=== PATIENT | male | born 1990 | race Caucasian/White ===

== ENCOUNTER 2022-01-28 09:54 | Observation (INO) ==
[2022-01-28] MEDS ORDERED: 0.9 % Sodium Chloride 1,000 ML IVC ONE ×2 (10:31→12:41)
[2022-01-28] MEDS ORDERED: Ondansetron 4 MG/2 ML VIAL IVP ONE (10:31)
[2022-01-28] MEDS ORDERED: Iopamidol - 370 500 ML MLS IVP ONE ×2 (10:33→10:34)
[2022-01-28 11:43] LABS: Bilirubin,Urine Negative (Negative); Blood,Urine Negative (Negative); Clarity,Urine Clear (Clear); Color,Urine Light-Yellow (Yellow); Glucose,Urine (UA) Normal (Normal); Ketones,Urine Negative (Negative); Leukocyte Esterase,Urine Negative (Negative); Nitrite,Urine Negative (Negative); PH,Urine 6.5 pH Units (5.0-8.0); Protein,Urine Negative (Neg-Trace); Specific Gravity,Urine 1.013 (1.010-1.025); Urobilinogen,Urine Normal (Normal)
[2022-01-28 11:47] LABS: Basophils % 0.3 %; Eosinophils # 0.3 K/mcL (0.0-0.6); Hematocrit 42.6 % (37.5-50.1); Hemoglobin 15.1 g/dL (12.9-16.9); Immature Granulocytes % 0.2 % (0-4); Lymphocytes # 2.7 K/mcL (0.6-4.6); Lymphocytes % 40.3 %; Mean Corpuscular HGB Conc 35.4 g/dL (31.6-35.5); Mean Corpuscular Hemoglobin 31.1 pg (28.0-33.3); Mean Corpuscular Volume 87.8 fL (83.0-100.0); Mean Platelet Volume 9.4 fL (9.4-12.4); Monocytes # 0.7 K/mcL (0.0-1.3); Neutrophils # 2.9 K/mcL (1.6-8.9); Platelet Count 201 K/mcL (140-400); Red Blood Count 4.85 M/mcL (4.19-5.50); Red Cell Distribution Width 11.9 % (11.5-14.5); Segmented Neutrophils % 44.2 %; White Blood Count 6.6 K/mcL (4.3-11.1)
[2022-01-28 11:56] LABS: Prothrombin Time 11.2 Seconds (9.4-12.1)
[2022-01-28 11:59] LABS: Activated Partial Thrombo Time 28.6 Seconds (26.0-36.0)
[2022-01-28 12:10] LABS: Influenza A PCR Negative (Negative); Influenza B PCR Negative (Negative); Resp. Syncytial Virus PCR Negative (Negative)
[2022-01-28 12:12] LABS: BUN/Creatinine Ratio 14 (6-26); Blood Urea Nitrogen 13 mg/dL (6-20); Calcium 9.2 mg/dL (8.6-10.3); Carbon Dioxide 26 mEq/L (23-29); Chloride 105 mEq/L (98-107); Glucose 90 mg/dL (70-105); Osmolality,Calculated 284 (280-300); Potassium 4.4 mEq/L (3.5-5.1); Sodium 137 mEq/L (136-145); Troponin I < 0.03 ng/mL (< 0.04)
[2022-01-28 12:18] LABS: SARS-CoV-2 by PCR (In House) Positive (Negative)
[2022-01-28] MEDS ORDERED: Prochlorperazine 10 MG/2 ML VIAL IVP STA (12:41)
[2022-01-28] MEDS ORDERED: *HR* Rivaroxaban 15 MG TABLET PO STA (13:25)
[2022-01-28] MEDS ORDERED: Ketorolac 30 MG/ML VIAL IVP STA (13:26)
[2022-01-28] MEDS ORDERED: *HR* Heparin 5,000 UNIT/ML VIAL IVP ONE (13:51)
[2022-01-28] MEDS ORDERED: *HR* Heparin 5,000 UNIT/ML VIAL IVP PRN ×2 (13:51)
[2022-01-28] MEDS ORDERED: Heparin 25,000UNIT/250ML 1/2NS 25,000 UNIT/250 ML IV.SOLN IVC SCH (14:00)
[2022-01-28 14:30] LABS: Heparin anti-factor XA UFH < 0.04 IU/mL (0.30-0.70)
[2022-01-28] MEDS ORDERED: Gadolinium Contrast Agent (WT Based) IV PRN (14:30)
[2022-01-28 14:31] LABS: Prothrombin Time 11.2 Seconds (9.4-12.1)
[2022-01-28 15:08] LABS: C-Reactive Protein < 5 mg/L (Less than 10)
[2022-01-28] MEDS ORDERED: GADOBUTROL 30 MMOL/30 ML VIAL IVP ONE (15:26)
[2022-01-28] MEDS ORDERED: Acetaminophen 325 MG TABLET PO PRN (15:38)
[2022-01-28] MEDS ORDERED: Melatonin 3 MG TABLET PO PRN (22:42)
[2022-01-29 03:30] LABS: Alanine Aminotransferase 19 Units/L (7-52); Albumin 3.7 g/dL (3.5-5.7); Albumin/Globulin Ratio 1.7 (1.1-2.2); Alkaline Phosphatase 53 Units/L (34-104); Aspartate Amino Transferase 17 Units/L (13-39); BUN/Creatinine Ratio 13 (6-26); Bilirubin,Total 0.4 mg/dL (0.3-1.0); Blood Urea Nitrogen 12 mg/dL (6-20); Calcium 8.3 mg/dL (8.6-10.3); Carbon Dioxide 22 mEq/L (23-29); Chloride 108 mEq/L (98-107); Chol/HDL Ratio 3.7 (0-4.9); Cholesterol 118 mg/dL (< 200); Globulin 2.2 g/dL (2.4-3.5); Glucose 99 mg/dL (70-105); HDL Cholesterol 32 mg/dL (40-59); LDL Cholesterol,Calculated 56 mg/dL (< 100); Osmolality,Calculated 284 (280-300); Potassium 4.1 mEq/L (3.5-5.1); Sodium 137 mEq/L (136-145); Total Protein 5.9 g/dL (6.4-8.9); Triglycerides 150 mg/dL (< 150)
[2022-01-29 04:44] LABS: Estimated Average Glucose 120 mg/dl; Hemoglobin A1C 5.8 %
[2022-01-29 07:24] VITALS: BP 125/81; PULSE 57; TEMP 97.9; O2SAT 96
[2022-01-29] MEDS ORDERED: Apixaban 5 MG TABLET PO SCH ×2 (09:00)
[2022-01-29] MEDS ORDERED: Aspirin Enteric Coated 81 MG Tablet PO SCH (09:00)
== END 2022-01-29 12:08 | disposition home or self-care (01) ==
LOC: 3BNU 09:54 → EMEROOARM 09:54 → SUATTDRO 15:12 → 3BNU 16:09
PROVIDERS: ADMIT Internal Medicine; ATTEND Internal Medicine